=== PATIENT | male | born 1935 | race Caucasian/White ===

== ENCOUNTER 2017-01-14 09:54 | Day surgery (SDC) | payer MEDICARE, OTHER ==
[2017-01-14] MEDS ORDERED: LACTATED RINGERS 1,000 ML IV ONE (10:25)
[2017-01-14] MEDS ORDERED: MIDAZOLAM 2 MG/2 ML VIAL IVP ONE (12:45)
[2017-01-14] MEDS ORDERED: fentaNYL 100 MCG/2 ML VIAL IVP ONE (12:45)
[2017-01-14 13:49] VITALS: BP 124/74
== END 2017-01-14 09:55 | disposition home or self-care (01) ==
LOC: SDS 09:54
PROVIDERS: ATTEND Surgery
PROC: 0DBL8ZX Excision of Transverse Colon, Via Natural or Artificial Opening Endoscopic, Diagnostic (ICD-10-PCS; 2017-01-14)
PROC: 0DBN8ZX Excision of Sigmoid Colon, Via Natural or Artificial Opening Endoscopic, Diagnostic (ICD-10-PCS; principal; 2017-01-14 11:15)
DX: Z12.11 Encounter for screening for malignant neoplasm of colon (principal); Z80.0 Family history of malignant neoplasm of digestive organs; K57.30 Diverticulosis of large intestine without perforation or abscess without bleeding; K64.8 Other hemorrhoids; K59.8 Other specified functional intestinal disorders; Z86.010 Personal history of colon polyps; Z85.46 Personal history of malignant neoplasm of prostate; I10 Essential (primary) hypertension; Z90.79 Acquired absence of other genital organ(s); Z87.891 Personal history of nicotine dependence
CPT/HCPCS: 45380; J7120; 88305

== ENCOUNTER 2017-08-30 08:00 | Outpatient (CLI) | payer MEDICARE, OTHER ==
[2017-08-30 12:50] LABS: BASOPHILS # (AUTO) 0.1 10^3/uL (0.0-0.1); BASOPHILS % (AUTO) 1.2 %; EOSINOPHILS # (AUTO) 0.1 10^3/uL (0.0-0.7); EOSINOPHILS % (AUTO) 2.1 %; HGB - HEMOGLOBIN 13.9 g/dL (14.0-18.0); LYMPHOCYTES # (AUTO) 1.7 10^3/uL (1.5-3.5); LYMPHOCYTES % (AUTO) 25.9 %; MEAN CORPUSCULAR HEMOGLOBIN 28.3 pg (27.0-31.0); MEAN CORPUSCULAR HGB CONC 33.2 g/dL (32.0-36.0); MEAN CORPUSCULAR VOLUME 85.3 fL (80.0-94.0); MEAN PLATELET VOLUME 9.2 fL (7.4-11.4); MONOCYTES # (AUTO) 0.5 10^3/uL (0.0-1.0); MONOCYTES % (AUTO) 7.3 %; NEUTROPHILS # (AUTO) 4.1 10^3/uL (1.5-6.6); NEUTROPHILS % (AUTO) 63.5 %; PLT - PLATELET COUNT 186 10^3/uL (130-450); RED BLOOD COUNT 4.92 10^6/uL (4.70-6.10); RED CELL DISTRIBUTION WIDTH 14.5 % (12.0-15.0); WHITE BLOOD COUNT 6.5 x10^3/uL (4.8-10.8)
[2017-08-30 12:54] LABS: ALBUMIN 4.5 g/dL (3.2-5.5); ALBUMIN/GLOBULIN RATIO 1.6 (1.0-2.2); ALKALINE PHOSPHATASE 75 IU/L (42-121); ALT ALANINE AMINOTRANSFERASE 16 IU/L (10-60); AST ASPARTATE AMINOTRANSFERASE 17 IU/L (10-42); BILIRUBIN,TOTAL 0.9 mg/dL (0.2-1.0); BUN - BLOOD UREA NITROGEN 27 mg/dL (6-20); CARBON DIOXIDE - CO2 26 mmol/L (21-32); CHLORIDE 104 mmol/L (101-111); CHOL/HDL RATIO 2.2 (<5.0); CHOLESTEROL 175 mg/dL; CREATININE 1.1 mg/dL (0.6-1.2); GFR - MDRD 64 (>89); GLUCOSE 99 mg/dL (70-100); HDL CHOLESTEROL 81 mg/dL; SODIUM 137 mmol/L (135-145); TOTAL PROTEIN 7.4 g/dL (6.7-8.2)
[2017-08-30 13:14] LABS: LDL CHOLESTEROL,DIRECT 96 mg/dL; LDLD/HDL RATIO 1.2 (<3.6)
== END 2017-08-30 08:01 | disposition home or self-care (01) ==
LOC: LAB.WCP 08:00
PROVIDERS: ATTEND Family Medicine
DX: E78.5 Hyperlipidemia, unspecified (principal); I10 Essential (primary) hypertension; C61 Malignant neoplasm of prostate
CPT/HCPCS: 36415; 80053; 80061; 83721; 84153; 85025

== ENCOUNTER 2018-08-14 07:07 | Outpatient (CLI) | payer MEDICARE, OTHER ==
[2018-08-14 13:45] LABS: BASOPHILS # (AUTO) 0.1 10^3/uL (0.0-0.1); BASOPHILS % (AUTO) 1.1 %; EOSINOPHILS # (AUTO) 0.2 10^3/uL (0.0-0.7); EOSINOPHILS % (AUTO) 2.7 %; HGB - HEMOGLOBIN 13.1 g/dL (14.0-18.0); LYMPHOCYTES # (AUTO) 1.7 10^3/uL (1.5-3.5); LYMPHOCYTES % (AUTO) 30.3 %; MEAN CORPUSCULAR HEMOGLOBIN 28.8 pg (27.0-31.0); MEAN CORPUSCULAR HGB CONC 33.8 g/dL (32.0-36.0); MEAN CORPUSCULAR VOLUME 85.1 fL (80.0-94.0); MEAN PLATELET VOLUME 9.4 fL (7.4-11.4); MONOCYTES # (AUTO) 0.5 10^3/uL (0.0-1.0); NEUTROPHILS # (AUTO) 3.3 10^3/uL (1.5-6.6); NEUTROPHILS % (AUTO) 57.9 %; PLT - PLATELET COUNT 186 10^3/uL (130-450); RED BLOOD COUNT 4.54 10^6/uL (4.70-6.10); RED CELL DISTRIBUTION WIDTH 14.4 % (12.0-15.0); WHITE BLOOD COUNT 5.7 x10^3/uL (4.8-10.8)
[2018-08-14 14:05] LABS: ALBUMIN 4.2 g/dL (3.2-5.5); ALBUMIN/GLOBULIN RATIO 1.8 (1.0-2.2); ALKALINE PHOSPHATASE 69 IU/L (42-121); ALT ALANINE AMINOTRANSFERASE 17 IU/L (10-60); AST ASPARTATE AMINOTRANSFERASE 17 IU/L (10-42); BILIRUBIN,TOTAL 0.9 mg/dL (0.2-1.0); BUN - BLOOD UREA NITROGEN 18 mg/dL (6-20); CALCIUM 8.8 mg/dL (8.5-10.3); CARBON DIOXIDE - CO2 26 mmol/L (21-32); CHLORIDE 104 mmol/L (101-111); CHOL/HDL RATIO 2.6 (<5.0); CHOLESTEROL 169 mg/dL; GFR - MDRD 71 (>89); GLUCOSE 91 mg/dL (70-100); HDL CHOLESTEROL 66 mg/dL; LDL CHOLESTEROL,CALCULATED 95 mg/dL; LDL/HDL RATIO 1.4 (<3.6); SODIUM 138 mmol/L (135-145); TOTAL PROTEIN 6.5 g/dL (6.7-8.2); VLDL CHOLESTEROL 8 mg/dL
== END 2018-08-14 23:59 | disposition home or self-care (01) ==
LOC: LAB.WCP 07:07
PROVIDERS: ATTEND Family Medicine
DX: Z86.010 Personal history of colon polyps (principal); C61 Malignant neoplasm of prostate
CPT/HCPCS: 36415; 80053; 80061; 83721; 84153; 85025

== ENCOUNTER 2019-10-29 08:00 | Outpatient (CLI) | payer MEDICARE, OTHER ==
[2019-10-29 12:09] LABS: BASOPHILS # (AUTO) 0.1 10^3/uL (0.0-0.1); BASOPHILS % (AUTO) 1.2 %; EOSINOPHILS # (AUTO) 0.1 10^3/uL (0.0-0.7); EOSINOPHILS % (AUTO) 2.1 %; HGB - HEMOGLOBIN 13.3 g/dL (14.0-18.0); LYMPHOCYTES # (AUTO) 1.6 10^3/uL (1.5-3.5); LYMPHOCYTES % (AUTO) 37.8 %; MEAN CORPUSCULAR HEMOGLOBIN 29.4 pg (27.0-31.0); MEAN CORPUSCULAR HGB CONC 33.2 g/dL (32.0-36.0); MEAN CORPUSCULAR VOLUME 88.5 fL (80.0-94.0); MONOCYTES # (AUTO) 0.4 10^3/uL (0.0-1.0); MONOCYTES % (AUTO) 8.8 %; NEUTROPHILS # (AUTO) 2.1 10^3/uL (1.5-6.6); NEUTROPHILS % (AUTO) 49.9 %; PLT - PLATELET COUNT 150 10^3/uL (130-450); RED BLOOD COUNT 4.53 10^6/uL (4.70-6.10); RED CELL DISTRIBUTION WIDTH 13.2 % (12.0-15.0); WHITE BLOOD COUNT 4.2 x10^3/uL (4.8-10.8)
[2019-10-29 12:19] LABS: ALBUMIN 4.4 g/dL (3.2-5.5); ALBUMIN/GLOBULIN RATIO 1.6 (1.0-2.2); ALKALINE PHOSPHATASE 55 IU/L (42-121); ALT ALANINE AMINOTRANSFERASE 17 IU/L (10-60); AST ASPARTATE AMINOTRANSFERASE 18 IU/L (10-42); BILIRUBIN,TOTAL 1.1 mg/dL (0.2-1.0); BUN - BLOOD UREA NITROGEN 21 mg/dL (6-20); CALCIUM 8.9 mg/dL (8.5-10.3); CARBON DIOXIDE - CO2 26 mmol/L (21-32); CHLORIDE 105 mmol/L (101-111); CHOL/HDL RATIO 2.1 (<5.0); CHOLESTEROL 158 mg/dL; GFR - MDRD 71 (>89); GLUCOSE 100 mg/dL (70-100); HDL CHOLESTEROL 74 mg/dL; SODIUM 137 mmol/L (135-145); TOTAL PROTEIN 7.1 g/dL (6.7-8.2)
== END 2019-10-29 23:59 | disposition home or self-care (01) ==
LOC: LAB.WCP 08:00
PROVIDERS: ATTEND Family Medicine
DX: E78.5 Hyperlipidemia, unspecified (principal); I10 Essential (primary) hypertension; C61 Malignant neoplasm of prostate
CPT/HCPCS: 36415; 80053; 80061; 83721; 84153; 84443; 85025

== ENCOUNTER 2020-08-03 08:00 | Outpatient (CLI) | payer MEDICARE, OTHER ==
[2020-08-03 11:51] LABS: BASOPHILS % (AUTO) 0.3 %; HGB - HEMOGLOBIN 11.8 g/dL (14.0-18.0); LYMPHOCYTES # (AUTO) 1.2 10^3/uL (1.5-3.5); LYMPHOCYTES % (AUTO) 40.5 %; MEAN CORPUSCULAR HEMOGLOBIN 30.7 pg (27.0-31.0); MEAN CORPUSCULAR HGB CONC 32.6 g/dL (32.0-36.0); MEAN CORPUSCULAR VOLUME 94.3 fL (80.0-94.0); MEAN PLATELET VOLUME 12.5 fL (7.4-11.4); MONOCYTES # (AUTO) 0.3 10^3/uL (0.0-1.0); MONOCYTES % (AUTO) 9.5 %; NEUTROPHILS # (AUTO) 1.4 10^3/uL (1.5-6.6); PLT - PLATELET COUNT 61 10^3/uL (130-450); RED BLOOD COUNT 3.84 10^6/uL (4.70-6.10); RED CELL DISTRIBUTION WIDTH 14.3 % (12.0-15.0)
[2020-08-03 12:45] LABS: ALBUMIN 4.6 g/dL (3.2-5.5); ALBUMIN/GLOBULIN RATIO 1.7 (1.0-2.2); ALKALINE PHOSPHATASE 70 IU/L (42-121); ALT ALANINE AMINOTRANSFERASE 23 IU/L (10-60); AST ASPARTATE AMINOTRANSFERASE 19 IU/L (10-42); BILIRUBIN,TOTAL 1.2 mg/dL (0.2-1.0); BUN - BLOOD UREA NITROGEN 19 mg/dL (6-20); CALCIUM 9.3 mg/dL (8.5-10.3); CARBON DIOXIDE - CO2 26 mmol/L (21-32); CHLORIDE 102 mmol/L (101-111); CHOL/HDL RATIO 2.2 (<5.0); CHOLESTEROL 162 mg/dL; CREATININE 1.1 mg/dL (0.6-1.2); GLUCOSE 98 mg/dL (70-100); HDL CHOLESTEROL 73 mg/dL; LDL CHOLESTEROL,CALCULATED 81 mg/dL; LDL/HDL RATIO 1.1 (<3.6); SODIUM 136 mmol/L (135-145); TOTAL PROTEIN 7.3 g/dL (6.7-8.2); VLDL CHOLESTEROL 8 mg/dL
== END 2020-08-03 23:59 | disposition home or self-care (01) ==
LOC: LAB.WCP 08:00
PROVIDERS: ATTEND Internal Medicine
DX: I10 Essential (primary) hypertension (principal); E78.5 Hyperlipidemia, unspecified; Z85.46 Personal history of malignant neoplasm of prostate; Z13.29 Encounter for screening for other suspected endocrine disorder
CPT/HCPCS: 36415; 80053; 80061; 83721; 84153; 84443; 85025

== ENCOUNTER 2020-08-08 08:00 | Outpatient (CLI) | payer MEDICARE, OTHER ==
[2020-08-08 17:57] LABS: ABSOLUTE RETICS # AUTO 0.037 10^6/uL (0.020-0.110); BASOPHILS % (AUTO) 0.3 %; EOSINOPHILS % (AUTO) 1.3 %; HGB - HEMOGLOBIN 10.9 g/dL (14.0-18.0); LYMPHOCYTES # (AUTO) 1.1 10^3/uL (1.5-3.5); LYMPHOCYTES % (AUTO) 34.6 %; MEAN CORPUSCULAR HEMOGLOBIN 31.2 pg (27.0-31.0); MEAN CORPUSCULAR VOLUME 94.6 fL (80.0-94.0); MEAN PLATELET VOLUME 12.3 fL (7.4-11.4); MONOCYTES # (AUTO) 0.3 10^3/uL (0.0-1.0); MONOCYTES % (AUTO) 10.1 %; NEUTROPHILS # (AUTO) 1.7 10^3/uL (1.5-6.6); NEUTROPHILS % (AUTO) 53.4 %; PLT - PLATELET COUNT 61 10^3/uL (130-450); RED BLOOD COUNT 3.49 10^6/uL (4.70-6.10); RED CELL DISTRIBUTION WIDTH 14.4 % (12.0-15.0); WHITE BLOOD COUNT 3.2 x10^3/uL (4.8-10.8)
[2020-08-08 18:29] LABS: FERRITIN 208.8 ng/mL (23.9-336.2)
[2020-08-08 18:32] LABS: FOLATE 15.2 ng/mL (5.90 - >24.8)
[2020-08-08 18:36] LABS: % IRON SATURATION 28 % (20-50); IRON 93 ug/dL (45-182); TOTAL IRON BINDING CAPACITY 332 ug/dL (250-450); TRANSFERRIN 237 mg/dL (180-329)
== END 2020-08-08 23:59 | disposition home or self-care (01) ==
LOC: LAB.WCP 08:00
PROVIDERS: ATTEND Internal Medicine
DX: D61.818 Other pancytopenia (principal)
CPT/HCPCS: 36415; 81599; 82607; 82728; 82746; 83540; 84155; 84165; 84466; 85025; 85045; 86334

== ENCOUNTER 2020-08-23 08:00 | Outpatient (CLI) | payer MEDICARE, OTHER | END 2020-08-23 23:59 | disposition home or self-care (01) | LOC: LAB.R 08:00 | PROVIDERS: ATTEND Internal Medicine | DX: D47.2 Monoclonal gammopathy (principal) | CPT/HCPCS: 81599; 82570; 84156; 84166 ==

== ENCOUNTER 2022-09-08 14:01 | Emergency (ER) | payer MEDICARE, OTHER ==
[2022-09-08] MEDS ORDERED: LIDOCAINE 1% 2 ML VIAL SUBQ STA (14:17)
[2022-09-08] MEDS ORDERED: TETANUS/DIPHTHERIA/PERTUSSIS 0.5 ML SYRINGE IM ONE (14:18)
--- NOTE | 2022-09-08 15:07 | ED Physician Documentation ---
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 The patient was making a pumpkin pie and corn bread when he was checking the hand tetryl blender operator and accidentally turned it on causing the tetryl blender operator blade to strike his left index finger. He placed a towel dressing over it and drove here, concerned that because his platelets were low that he was bleeding quite a bit. No other injuries or concerns today. Review of Systems Constitutional: reports: Reviewed and negative Cardiac: reports: Reviewed and negative Respiratory: reports: Reviewed and negative GI: reports: Reviewed and negative Skin: reports: Laceration (s) Musculoskeletal: reports: Reviewed and negative Neurologic: reports: Reviewed and negative PD PAST MEDICAL HISTORY - Past Medical History Past Medical History: Yes Cardiovascular: Hypertension, High cholesterol Respiratory: None Endocrine/Autoimmune: None GI: Colon polyps : Other Musculoskeletal: None Derm: None - Present Medications Home Medications: Ambulatory Orders Medication Instructions Recorded Confirmed Ondansetron HCl 4 mg PO Q6HR PRN #30 tablet 01/02/22 08/31/22 Fluconazole [Diflucan] 400 mg PO DAILY #120 tablet 01/23/22 08/31/22 Acyclovir 400 mg PO BID 04/06/22 08/31/22 Aspirin EC [Ecotrin] 81 mg PO DAILY 04/06/22 08/31/22 Buspirone HCl 15 mg PO BID 04/06/22 08/31/22 Celecoxib [Celebrex] 200 mg PO DAILY 04/06/22 08/31/22 Cholecalciferol [Vitamin D3] 25 mcg PO DAILY 04/06/22 08/31/22 Ciprofloxacin HCl [Cipro] 500 mg PO BID #60 tablet 04/06/22 08/31/22 Clotrimazole/Betamethasone Crm 1 appful TOP BID 04/06/22 08/31/22 [Lotrisone Cream] Doxazosin [Cardura] 4 mg PO HS 04/06/22 08/31/22 Ferrous Sulfate 325 mg PO DAILY 04/06/22 08/31/22 Furosemide [Lasix] 40 mg PO DAILY 04/06/22 08/31/22 Lisinopril [Zestril] 20 mg PO DAILY 04/06/22 08/31/22 Magic Mouthwash 30 ml PO Q8H #120 ml 04/06/22 08/31/22 Magnesium Chloride [Magnesium] 64 mg PO DAILY 04/06/22 08/31/22 Metoprolol Succinate [Toprol Xl] 50 mg PO DAILY 04/06/22 08/31/22 Multivitamin W/Minerals [Theragran 1 each PO DAILY 04/06/22 08/31/22 M] Mupirocin 2% Oint [Bactroban 2% 1 appful TOP TID 04/06/22 08/31/22 Oint] Nystatin [Nystop] 1 applic TOP TID PRN 04/06/22 08/31/22 [place]-3 Fatty Acids/Dha/Epa [[place] 1 each PO DAILY 04/06/22 08/31/22 Blue Dha Cap] PARoxetine [Paxil] 40 mg PO DAILY 04/06/22 08/31/22 Pantoprazole [Protonix] 40 mg PO DAILY 04/06/22 08/31/22 Potassium Chloride [K-Dur] 20 meq PO DAILY 04/06/22 08/31/22 allopurinoL [Zyloprim] 100 mg PO DAILY 04/06/22 08/31/22 hydrOXYzine HCL [Hydroxyzine HCl] 10 - 20 mg PO TID PRN 04/06/22 08/31/22 hydroCHLOROthiazide [Hydrodiuril] 12.5 mg PO DAILY 04/06/22 08/31/22 cephALEXin [Keflex] 500 mg PO Q6H 5 Days #20 cap 09/08/22 - Allergies Allergies/Adverse Reactions: Allergies Allergy/AdvReac Type Severity Reaction Status Date / Time No Known Drug Allergies Allergy Verified 09/08/22 14:12 - Social History Does the pt smoke?: No Smoking Status: Never smoker PD ED PE NORMAL - Vitals Vital signs reviewed: Yes - General General: Alert and oriented X 3, No acute distress, Well developed/nourished - HEENT HEENT: Atraumatic - Cardiac Cardiac: RRR, No murmur - Respiratory Respiratory: No respiratory distress, Clear bilaterally - Derm Derm: Other (laceration, partial avulsion of the tip of the left index finger including nail. ) - Extremities Extremities: No deformity, No tenderness to palpate, Normal ROM s pain, No edema, Other (Injury to left index finger tip but moves finger w/o difficulty) - Neuro Neuro: Alert and oriented X 3 Eye Opening: Spontaneous Motor: Obeys Commands Verbal: Oriented GCS Score: 15 Results - Vitals Vitals: Vital Signs - 24 hr 09/08/22 14:09 Temperature 36.9 C Heart Rate 85 Respiratory 20 Rate Blood Pressure 157/77 H O2 Saturation 100 Oxygen O2 Source Room air - Rads (name of study) finger Radiology: EMP read indepedently Procedures - Laceration (location) Finger left Distal Length in cm: 2 Wound type: Contaminated, Other (multiple small jagged lacerations from tetryl blender operator, w/ nail and nailbed involvement) Neurovascular status: Sensory intact, Motor intact, Vascular intact Tendon involvement: Tendon intact Anesthesia: Lidocaine 1% Wound preparation: Chlorhexadine, Irrigated copiously NS Deep layer closure: # sutures - enter number Skin layer closure: Interrupted, Sutures - enter # (11), Other (vicryl used) Other: Patient tolerated well, No complications, Neurovascular intact, Dressing applied PD Medical Decision Making - ED course Complexity details: reviewed results, re-evaluated patient, considered differential, d/w patient ED course: This is a very nice 87-year-old gentleman who presented after injuring his left index finger in a tetryl blender operator as described in HPI. The patient had a intermediate complex laceration of the fingertip involving the fingernail and bed. There was areas that were avulsed in the very distal part of the fingertip and it wrapped around to the finger pad. Total approximately 2 cm to the multiple jagged pieces involving the nail. It required utilizing a finger tourniquet and anesthetizing with 1% plain lidocaine and then closing the nailbed as best as I was able to along with the laceration and pulling the distal finger flap over to the nailbed to provide closure. Patient tolerated well Departure - Departure Disposition: 01 Home, Self Care Clinical Impression: Laceration, Open fracture of phalanx of digit of hand Condition: Good Instructions: ED Fx Finger Open, ED Laceration Hand Prescriptions: cephALEXin [Keflex] 500 mg PO Q6H 5 Days #20 cap Comments: You sustained a laceration of the index finger and nail, which also caused a fracture (break) to the bone of the distal fingertip. The nail was destroyed but I sutured some of it in place to protect the underlying skin as it heals. These are dissolvable's sutures and do not need to be removed. Please keep the hand clean but do not soak and generally try to keep dry and do not wash aggressively. If at any point time there appears to be signs of infection such as redness, swelling, purulent or honey crusted drainage, increased pain or other new concerns, please see your doctor or return to the ER. The finger will have scarring and take some time to heal as it was not able to be closed Tightly due to the nature of the wound. You will need to be on antibiotics for 5 days to reduce chance of infection.
[2022-09-08 15:26] VITALS: BP 134/84
--- NOTE | 2022-09-08 15:35 | XRAY Report ---
PROCEDURE: Finger(s) LT INDICATIONS: trauma to index finger TECHNIQUE: AP hand, 2 views of the second finger(s) acquired. COMPARISON: None FINDINGS: Bones: There is a mildly displaced fracture seen involving the distal aspect of the distal phalanx of the second finger. No additional fractures can be seen. Age-appropriate degenerative changes are seen. Soft tissues: Associated soft tissue injury is seen. IMPRESSION: Fracture of the distal aspect of the distal phalanx of the second finger. Reviewed by: Westley Olivrea MD on 09/08/2022 2:34 PM [place] Approved by: Westley Olivera MD on 09/08/2022 2:34 PM [facility] Station ID: [id number]
== END 2022-09-08 15:34 | disposition home or self-care (01) ==
LOC: ED 14:01
DX: I10 Essential (primary) hypertension (principal); S62.631B Displaced fracture of distal phalanx of left index finger, initial encounter for open fracture; W29.0XXA Contact with powered kitchen appliance, initial encounter; Z23 Encounter for immunization; Z71.85 Encounter for immunization safety counseling
CPT/HCPCS: 13131; 90471

== ENCOUNTER 2022-12-31 07:41 | Outpatient (CLI) | payer MEDICARE, OTHER ==
[2022-12-31 08:14] LABS: INR 1.3 (0.8-1.2); PT - PROTHROMBIN TIME 14.2 secs (9.9-12.6)
[2022-12-31 08:21] LABS: PARTIAL THROMBOPLASTIN TIME 31.4 secs (24.9-33.3)
[2022-12-31] MEDS ORDERED: LIDOCAINE-MPF 1% 5 ML VIAL ONE (08:23)
[2022-12-31 11:51] VITALS: BP 136/72
--- NOTE | 2022-12-31 17:36 | CT Report ---
PROCEDURE: BONE MARROW BX W/ASPIRATION Sedation analgesia for 0 minutes (no sedation). INDICATIONS: AML TECHNIQUE: The indications, alternatives, benefits, risks, and possible complications of the procedure were comm unicated to the patient. Informed written consent from the patient was obtained and placed in the art. Continuous EKG and hemodynamic monitoring was started by trained personnel. For radiation dose reduction, the following was used: automated exposure control, adjustment of mA and/or kV according to patient size. The patient was brought to the CT suite and fork repairer spiral CT imaging was performed with localization g rid. The appropriate site for percutaneous access to the biopsy target was marked, was prepped and d raped sterilely, and was infused with local anaesthesia. Under CT guidance, a core biopsy trocar and needle set was advanced to the biopsy target, and specimen(s) were obtained. The trocar and needle were then removed, and the patient was sent for post-procedure monitoring. COMPARISON: None. FINDINGS: Biopsy site: Right iliac crest. Needle: 11 gauge biopsy needle with introducer trocar. Number of passes: 2 Medications: 1% lidocaine for local anaesthesia.. Complications: None. IMPRESSION: Successful CT-guided biopsy of bone marrow biopsy. Reviewed by: Macarena Johnson MD on 12/31/2022 5:35 PM PDT Approved by: Macarena Johnson MD on 12/31/2022 5:35 PM PDT Station ID: [id number]
== END 2022-12-31 07:42 | disposition home or self-care (01) ==
LOC: DI 07:41
PROVIDERS: ATTEND Internal Medicine Hematology & Oncology
DX: C92.00 Acute myeloblastic leukemia, not having achieved remission (principal); D46.9 Myelodysplastic syndrome, unspecified
CPT/HCPCS: 36415; 38222; 85610; 85730

== ENCOUNTER 2023-02-27 09:11 | Outpatient (CLI) | payer MEDICARE, OTHER ==
[2023-02-21 09:23] VITALS: BP 128/84
[~2023-02-27 09:11] MED LIST: LIDOCAINE-MPF 1% 5 ML VIAL ONE
[2023-02-27] MEDS ORDERED: LIDOCAINE-MPF 1% 5 ML VIAL ONE ×2 (09:30→10:30)
--- NOTE | 2023-02-27 16:50 | CT Report ---
PROCEDURE: BONE MARROW BX INDICATIONS: AML TECHNIQUE: The indications, alternatives, benefits, risks, and possible complications of the procedure were comm unicated to the patient. Informed written consent from the patient was obtained and placed in the art. Continuous EKG and hemodynamic monitoring was started by trained personnel. For radiation dose reduction, the following was used: automated exposure control, adjustment of mA and/or kV according to patient size. The patient was brought to the CT suite and insurance examining clerk spiral CT imaging was performed with localization g rid. The appropriate site for percutaneous access to the biopsy target was marked, was prepped and d raped sterilely, and was infused with local anaesthesia. Under CT guidance, a core biopsy trocar and needle set was advanced to the biopsy target, and specimen(s) were obtained. Bone marrow aspirate w as attempted. However, no aspirate was returned. The trocar and needle were then removed, and the pat ient was sent for post-procedure monitoring. COMPARISON: None. FINDINGS: Biopsy site: Right iliac Needle: 11 gauge biopsy needle with introducer trocar. Number of passes: 1 Medications: 1% lidocaine for local anaesthesia. Complications: None. IMPRESSION: Successful CT-guided biopsy of bone marrow. It is noted that no bone mineral aspirate wa s able to be obtained.. Reviewed by: Padmini Chan MD on 02/27/2023 4:49 PM PDT Approved by: Padmini Chan MD on 02/27/2023 4:49 PM PDT Station ID: [id number]
== END 2023-02-27 09:12 | disposition home or self-care (01) ==
LOC: SDS 09:11
PROVIDERS: ATTEND Internal Medicine Hematology & Oncology
DX: C92.00 Acute myeloblastic leukemia, not having achieved remission (principal); C61 Malignant neoplasm of prostate
CPT/HCPCS: 38221; 77012; J7120

== ENCOUNTER 2023-02-27 09:12 | Outpatient (CLI) | payer MEDICARE, OTHER ==
[2023-02-27] MEDS ORDERED: LACTATED RINGERS 1,000 ML IV ONE (10:00)
[2023-02-27] MEDS ORDERED: LACTATED RINGERS 500 ML IV ONE (10:00)
[2023-02-27 11:57] VITALS: BP 128/72
== END 2023-02-27 09:13 | disposition home or self-care (01) ==
LOC: SDS 09:12 → DI 09:12 → SDS 09:13 → DI 09:13
PROVIDERS: ATTEND Radiology Neuroradiology
DX: Z53.9 Procedure and treatment not carried out, unspecified reason (principal)
CPT/HCPCS: 38221

== ENCOUNTER 2023-04-03 11:14 | Emergency (ER) | payer MEDICARE, OTHER ==
[2023-04-03 11:33] VITALS: O2SAT 100
[2023-04-03] MEDS ORDERED: SODIUM CHLORIDE 0.9% 1,000 ML IV STA ×2 (11:42)
[2023-04-03 11:58] LABS: BASOPHILS % (AUTO) 1.5 %; HCT - HEMATOCRIT 21.3 % (42.0-52.0); HGB - HEMOGLOBIN 7.1 g/dL (14.0-18.0); LYMPHOCYTES % (AUTO) 26.5 %; MEAN CORPUSCULAR HEMOGLOBIN 30.5 pg (27.0-31.0); MEAN CORPUSCULAR HGB CONC 33.3 g/dL (32.0-36.0); MEAN CORPUSCULAR VOLUME 91.4 fL (80.0-94.0); MEAN PLATELET VOLUME 10.4 fL (7.4-11.4); MONOCYTES % (AUTO) 32.4 %; NEUTROPHILS % (AUTO) 36.7 %; RED BLOOD COUNT 2.33 10^6/uL (4.70-6.10); RED CELL DISTRIBUTION WIDTH 13.5 % (12.0-15.0)
[2023-04-03 12:02] LABS: PLT - PLATELET COUNT 13 10^3/uL (130-450); SLIDE REVIEW? Indicated; WHITE BLOOD COUNT 0.7 x10^3/uL (4.8-10.8)
[2023-04-03 12:03] LABS: ABNORMAL LYMPHS % (MANUAL) 0 %; BAND NEUTROPHILS % (MANUAL) 0 %
[2023-04-03 12:11] LABS: ALBUMIN 3.9 g/dL (3.2-5.5); ALBUMIN/GLOBULIN RATIO 1.6 (1.0-2.2); BILIRUBIN,TOTAL 0.4 mg/dL (0.2-1.0); CALCIUM 9.3 mg/dL (8.5-10.3); POTASSIUM 4.2 mmol/L (3.5-4.5); TOTAL PROTEIN 6.4 g/dL (6.4-8.9)
--- NOTE | 2023-04-03 12:15 | ED Physician Documentation ---
History of Present Illness - Stated complaint Stated Complaint: WEAK,LOSS OF BALANCE - Chief complaint Chief Complaint: Neuro - History obtained from History obtained from: Patient - History of Present Illness Timing: Yesterday Pain level max: 0 Pain level now: 0 - Additonal information Additional information: Patient is an 88-year-old male who presents to the emergency department stating that he had generalized weakness yesterday. He states that this lasted for a few minutes. He has a history of MDS with secondary AML. Has severe neutropenia, severe anemia and severe thrombocytopenia. He states that these feelings are similar to when he has needed platelets and red blood cells in the past. He is currently on venetoclax and azacitidine. He has not noted any bleeding. Denies any trauma. No focal weakness or numbness. He states that he was at the grocery store yesterday and after walking in the grocery store became lightheaded and felt generally weak in his legs and arms. Sat down and the feeling passed in a few minutes. He states he had a second time at home when his vision felt like it was "dim". No chest pain. No shortness of breath. No nausea or vomiting. No focal neurological deficits. No headache. No trauma. Currently asymptomatic. He states he spoke with [place] [facility] who referred him here for evaluation. Review of Systems Constitutional: denies: Fever, Chills Nose: denies: Rhinorrhea / runny nose, Congestion GI: denies: Vomiting, Diarrhea Skin: denies: Rash Musculoskeletal: denies: Neck pain, Back pain Neurologic: denies: Headache PD PAST MEDICAL HISTORY - Past Medical History Past Medical History: Yes Cardiovascular: Congestive heart failure, Hypertension, High cholesterol Respiratory: None Endocrine/Autoimmune: None GI: GERD : Benign prostate hypertrophy, Other HEENT: Chronic vision loss Psych: Depression, Anxiety Musculoskeletal: None Derm: None - Past Surgical History General: Colonoscopy HEENT: Cataracts - Present Medications Home Medications: Ambulatory Orders Medication Instructions Recorded Confirmed Ondansetron HCl 4 mg PO Q6HR PRN #30 tablet 01/02/22 03/22/23 Fluconazole [Diflucan] 400 mg PO DAILY #120 tablet 01/23/22 03/22/23 Acyclovir 400 mg PO BID 04/06/22 03/22/23 Aspirin EC [Ecotrin] 81 mg PO DAILY 04/06/22 03/22/23 Buspirone HCl 15 mg PO BID 04/06/22 03/22/23 Celecoxib [Celebrex] 200 mg PO DAILY 04/06/22 03/22/23 Cholecalciferol [Vitamin D3] 25 mcg PO DAILY 04/06/22 03/22/23 Ciprofloxacin HCl [Cipro] 500 mg PO BID #60 tablet 04/06/22 03/22/23 Clotrimazole/Betamethasone Crm 1 appful TOP BID 04/06/22 03/22/23 [Lotrisone Cream] Doxazosin [Cardura] 4 mg PO HS 04/06/22 03/22/23 Ferrous Sulfate 325 mg PO DAILY 04/06/22 03/22/23 Furosemide [Lasix] 40 mg PO DAILY 04/06/22 03/22/23 Lisinopril [Zestril] 20 mg PO DAILY 04/06/22 03/22/23 Magnesium Chloride [Magnesium] 64 mg PO DAILY 04/06/22 03/22/23 Metoprolol Succinate [Toprol Xl] 50 mg PO DAILY 04/06/22 03/22/23 Multivitamin W/Minerals [Theragran 1 each PO DAILY 04/06/22 03/22/23 M] [place]-3 Fatty Acids/Dha/Epa [[place] 1 each PO DAILY 04/06/22 03/22/23 Blue Dha Cap] PARoxetine [Paxil] 40 mg PO DAILY 04/06/22 03/22/23 Pantoprazole [Protonix] 40 mg PO DAILY 04/06/22 03/22/23 Potassium Chloride [K-Dur] 20 meq PO DAILY 04/06/22 03/22/23 allopurinoL [Zyloprim] 100 mg PO DAILY 04/06/22 03/22/23 hydrOXYzine HCL [Hydroxyzine HCl] 10 - 20 mg PO TID PRN 04/06/22 03/22/23 Venetoclax [Venclexta] 200 mg PO DAILY 12/28/22 03/22/23 Fluconazole 400 mg PO DAILY #120 tablet 04/01/23 Fluconazole [Diflucan] 400 mg PO DAILY #120 tablet 04/01/23 - Allergies Allergies/Adverse Reactions: Allergies Allergy/AdvReac Type Severity Reaction Status Date / Time No Known Drug Allergies Allergy Verified 02/27/23 06:35 - Social History Does the pt smoke?: No Smoking Status: Never smoker PD ED PE NORMAL - Vitals Vital signs reviewed: Yes - General General: Alert and oriented X 3, No acute distress - HEENT HEENT: Atraumatic, PERRL, EOMI, Moist mucous membranes - Neck Neck: Supple, no meningeal sign - Cardiac Cardiac: RRR, Strong equal pulses - Respiratory Respiratory: No respiratory distress, Clear bilaterally - Abdomen Abdomen: Soft, Non tender, Non distended - Back Back: No spinal TTP - Derm Derm: Warm and dry, No rash - Extremities Extremities: No edema, No calf tenderness / cord - Neuro Neuro: Alert and oriented X 3, senior infrastructure engineer 2-12 intact, No motor deficit, No sensory deficit, Normal speech Eye Opening: Spontaneous Motor: Obeys Commands Verbal: Oriented GCS Score: 15 - Psych Psych: Normal mood, Normal affect Results - Vitals Vitals: Vital Signs - 24 hr 04/03/23 04/03/23 04/03/23 11:26 12:08 12:34 Temperature 35.6 C L Heart Rate 83 78 78 Respiratory 20 14 18 Rate Blood Pressure 147/94 H 124/75 125/72 O2 Saturation 100 100 100 Oxygen O2 Source Room air - EKG (time done) 1155 EKG releavant findings:: EKG personally interpreted by author of this note. Relevant findings are: Rate: Rate (enter#) (77) Rhythm: NSR [place]: Anterior hemiblock (LAFB) Intervals: RBBB - Labs Labs: Laboratory Tests 04/03/23 04/03/23 11:52 11:52 WBC 0.7 L* RBC 2.33 L Hgb 7.1 L Hct 21.3 L MCV 91.4 MCH 30.5 MCHC 33.3 RDW 13.5 Plt Count 13 L* MPV 10.4 Neut # (Auto) Not Reportable Lymph # (Auto) Not Reportable Divide # (Auto) Not Reportable Eos # (Auto) Not Reportable Baso # (Auto) Not Reportable Absolute Nucleated RBC Not Reportable Total Counted 25 Band Neuts % (Manual) 0 Abnorm Lymph % (Manual) 0 Nucleated RBC % Not Reportable Neutrophils # (Manual) 0.3 L* Lymphocytes # (Manual) 0.2 L Monocytes # (Manual) 0.2 Eosinophils # (Manual) 0.0 Basophils # (Manual) 0.0 Differential Comment MANUAL DIFFERENTIAL Manual Slide Review Indicated WBC Morphology NORMAL APPEARANCE Platelet Estimate DECREASED (<130,000) Platelet Morphology NORMAL APPEARANCE RBC Morph Micro Appear NORMAL APPEARANCE Sodium 137 Potassium 4.2 Chloride 107 Carbon Dioxide 25 Anion Gap 5.0 L BUN 25 H Creatinine 1.0 Estimated GFR (MDRD) 70 L Glucose 107 H Calcium 9.3 Total Bilirubin 0.4 AST 8 L ALT 10 Alkaline Phosphatase 84 Total Protein 6.4 Albumin 3.9 Globulin 2.5 Albumin/Globulin Ratio 1.6 Lipase 14 PD Medical Decision Making - ED course Complexity details: reviewed results, re-evaluated patient, considered differential, d/w patient, d/w solar sales consultant ED course: 88-year-old man with chronic anemia, chronic thrombocytopenia. Patient not having any evidence of bleeding. Labs are not significantly different from prior. No indication for emergent head CT. No focal neurological deficits. Feels better after IV fluids. Discussed the case with his oncologist and he will follow-up as an outpatient. Patient is asymptomatic today. Ambulating with a steady gait. No lightheadedness or dizziness. No generalized weakness or focal weakness today. No indication for emergent blood transfusion of red cells or platelets. Patient counseled regarding signs and symptoms for which I believe and urgent re-evaluation would be necessary. Patient with good understanding of and agreement to plan and is comfortable going home at this time This document was made in part using voice recognition software. While efforts are made to proofread this document, sound alike and grammatical errors may occur. Departure - Departure Disposition: 01 Home, Self Care Clinical Impression: Weakness, Thrombocytopenia Anemia Qualifiers: Anemia type: unspecified type Qualified Code(s): D64.9 - Anemia, unspecified AML (acute myeloblastic leukemia) Qualifiers: Leukemia Active/Remission status: without remission Qualified Code(s): C92.00 - Acute myeloblastic leukemia, not having achieved remission Condition: Good Instructions: ED Weakness [facility] Follow-Up: Geraldo King MD [Primary Care Provider] - Chito Abel MD [Physician No Access] - Chito Abel MD [Provider Admit Priv/Credential] - Comments: Please follow-up with your oncologist for further care. Your hemoglobin was 7.1 today and your platelets were 13,000. I did discuss the case with your oncologist, they will follow-up with you in the [facility] clinic. Your testing does not reveal any acute abnormalities today. Forms: PCP List
[2023-04-03 12:26] LABS: LYMPHOCYTES # (MANUAL) 0.2 10^3/uL (1.5-3.5); LYMPHOCYTES % (MANUAL) 28 %; MONOCYTES # (MANUAL) 0.2 10^3/uL (0.0-1.0); NEUTROPHILS # (MANUAL) 0.3 10^3/uL (1.5-6.6)
[2023-04-03 12:27] LABS: PLATELET ESTIMATE, MANUAL DECREASED (<130,000) (NORMAL); PLATELET MORPHOLOGY NORMAL APPEARANCE (NORMAL); RBC MORPHOLOGY (MULTIPLE) NORMAL APPEARANCE (NORMAL)
[2023-04-03 12:28] LABS: DIFFERENTIAL COMMENT MANUAL DIFFERENTIAL; WBC MORPHOLOGY (MULTIPLE) NORMAL APPEARANCE (NORMAL)
[2023-04-03 13:12] VITALS: BP 126/73
== END 2023-04-03 13:40 | disposition home or self-care (01) ==
LOC: ED 11:14
DX: D69.6 Thrombocytopenia, unspecified (principal); C92.00 Acute myeloblastic leukemia, not having achieved remission
CPT/HCPCS: 36415; 80053; 83690; 85025; 86850; 86900; 86901; 93005; 99284

== ENCOUNTER 2023-04-19 16:21 | Emergency (ER) | payer MEDICARE, OTHER ==
[2023-04-19] MEDS ORDERED: TRANEXAMIC ACID 1,000 MG/10 ML VIAL NAS STA (16:24)
[2023-04-19 16:55] LABS: HCT - HEMATOCRIT 21.7 % (42.0-52.0); HGB - HEMOGLOBIN 7.1 g/dL (14.0-18.0); LYMPHOCYTES % (AUTO) 36.6 %; MEAN CORPUSCULAR HEMOGLOBIN 29.1 pg (27.0-31.0); MEAN CORPUSCULAR HGB CONC 32.7 g/dL (32.0-36.0); MEAN CORPUSCULAR VOLUME 88.9 fL (80.0-94.0); MEAN PLATELET VOLUME 10.1 fL (7.4-11.4); MONOCYTES % (AUTO) 46.3 %; NEUTROPHILS % (AUTO) 17.1 %; PLT - PLATELET COUNT 38 10^3/uL (130-450); RED BLOOD COUNT 2.44 10^6/uL (4.70-6.10); RED CELL DISTRIBUTION WIDTH 13.6 % (12.0-15.0)
--- NOTE | 2023-04-19 16:58 | ED Physician Documentation ---
History of Present Illness - Stated complaint Stated Complaint: BLEEDING - Chief complaint Chief Complaint: General - History obtained from History obtained from: Patient - Additonal information Additional information: The patient is transferred to the emergency department from the [facility] for ongoing gingival bleeding in the setting of severe thrombocytopenia. 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 He was just seen by Dr. Tomas brewster this morning and found to have a platelet count of 3. His low levels are usually in the single digits and have ranged previously from 5-9. Posttransfusion, he usually reaches a level of teens to low 20s. The patient states that he began to have gingival bleeding after his visit with Dr. Elias this morning. He states that usually, he is able to hold some pressure with gauze and the bleeding stops. However, the bleeding continued and oozing fashion throughout the day and was still going on when he arrived for his appointment at the [facility] for his platelet transfusion. The patient received his entire unit of platelets and the oozing did continue though the patient thinks that has slowed down a little. He denies any chest pain or shortness of breath. No lightheadedness or syncopal episodes. The [facility] contacted Dr. Elias, who stated he would like the patient to get a couple more units of platelets with a goal of platelet count around 50, given his active bleeding. He states the patient's normal goal would be above 10, but since there is ongoing active bleeding, the goal becomes 50. Platelets have been ordered, according to [facility] and will be here in a few hours. The patient denies bleeding from anywhere else. He states he otherwise feels fairly well. No other complaints at this time. PD PAST MEDICAL HISTORY - Past Medical History Past Medical History: Yes Cardiovascular: Congestive heart failure, Hypertension, High cholesterol Respiratory: None Endocrine/Autoimmune: None GI: GERD : Benign prostate hypertrophy, Other HEENT: Chronic vision loss Psych: Depression, Anxiety Musculoskeletal: None Derm: None - Past Surgical History General: Colonoscopy HEENT: Cataracts - Present Medications Home Medications: Ambulatory Orders Medication Instructions Recorded Confirmed Ondansetron HCl 4 mg PO Q6HR PRN #30 tablet 01/02/22 04/19/23 Fluconazole [Diflucan] 400 mg PO DAILY #120 tablet 01/23/22 04/19/23 Acyclovir 400 mg PO BID 04/06/22 04/19/23 Aspirin EC [Ecotrin] 81 mg PO DAILY 04/06/22 04/19/23 Buspirone HCl 15 mg PO BID 04/06/22 04/19/23 Celecoxib [Celebrex] 200 mg PO DAILY 04/06/22 04/19/23 Cholecalciferol [Vitamin D3] 25 mcg PO DAILY 04/06/22 04/19/23 Ciprofloxacin HCl [Cipro] 500 mg PO BID #60 tablet 04/06/22 04/19/23 Clotrimazole/Betamethasone Crm 1 appful TOP BID 04/06/22 04/19/23 [Lotrisone Cream] Doxazosin [Cardura] 4 mg PO HS 04/06/22 04/19/23 Ferrous Sulfate 325 mg PO DAILY 04/06/22 04/19/23 Furosemide [Lasix] 40 mg PO DAILY 04/06/22 04/19/23 Lisinopril [Zestril] 20 mg PO DAILY 04/06/22 04/19/23 Magnesium Chloride [Magnesium] 64 mg PO DAILY 04/06/22 04/19/23 Metoprolol Succinate [Toprol Xl] 50 mg PO DAILY 04/06/22 04/19/23 Multivitamin W/Minerals [Theragran 1 each PO DAILY 04/06/22 04/19/23 M] [place]-3 Fatty Acids/Dha/Epa [[place] 1 each PO DAILY 04/06/22 04/19/23 Blue Dha Cap] PARoxetine [Paxil] 40 mg PO DAILY 04/06/22 04/19/23 Pantoprazole [Protonix] 40 mg PO DAILY 04/06/22 04/19/23 Potassium Chloride [K-Dur] 20 meq PO DAILY 04/06/22 04/19/23 allopurinoL [Zyloprim] 100 mg PO DAILY 04/06/22 04/19/23 hydrOXYzine HCL [Hydroxyzine HCl] 10 - 20 mg PO TID PRN 04/06/22 04/19/23 Venetoclax [Venclexta] 200 mg PO DAILY 12/28/22 04/19/23 Fluconazole 400 mg PO DAILY #120 tablet 04/01/23 Fluconazole [Diflucan] 400 mg PO DAILY #120 tablet 04/01/23 - Allergies Allergies/Adverse Reactions: Allergies Allergy/AdvReac Type Severity Reaction Status Date / Time No Known Drug Allergies Allergy Verified 04/19/23 16:37 - Social History Does the pt smoke?: No Smoking Status: Never smoker PD ED PE NORMAL - Vitals Vital signs reviewed: Yes - General General: Alert and oriented X 3, No acute distress, Well developed/nourished, Other (The patient is sitting up in bed, alert, well-appearing.) - HEENT HEENT: Atraumatic, PERRL, EOMI, Moist mucous membranes, Other (Mild clotted bloody residue along the margin of the Right mandibular gingiva and left maxillary gingiva. Mild slow oozing of blood noted in the same areas. No other active bleeding from mouth. No oral trauma.) - Neck Neck: Supple, no meningeal sign - Cardiac Cardiac: RRR, No murmur - Respiratory Respiratory: No respiratory distress, Clear bilaterally - Derm Derm: Normal color, Warm and dry, No rash, Other (No bruising or bleeding from skin) - Extremities Extremities: No deformity - Neuro Neuro: Alert and oriented X 3 - Psych Psych: Normal mood, Normal affect Results - Vitals Vitals: Vital Signs - 24 hr 04/19/23 16:33 Temperature 36.4 C L Heart Rate 89 Respiratory 20 Rate Blood Pressure 130/72 O2 Saturation 99 Oxygen O2 Source Room air PD Medical Decision Making - ED course Complexity details: reviewed results, re-evaluated patient, considered differential, d/w patient ED course: I reviewed the patient's labs from this morning showing the platelet count of 3, as well as hemoglobin level of 7.7. Dr. Elias had discussed the patient's case with me personally by phone and I did also review his note from his visit with the patient this morning. Dr. Elias had requested that the patient get the other 2 units of platelets with a goal of platelet count of 50, due to the fact that he has active bleeding. The patient was stable in the ED, but did have some ongoing oozing from his gingiva. I did place TXA impregnated gauze around the oozing areas. I discussed the case with Dr. Ashby, who agreed to admit the patient to her service for observation, remainder of platelet transfusion, and trending platelet levels. Patient is agreeable to this plan as well. Departure - Departure Disposition: ED Place in Observation Clinical Impression: Severe thrombocytopenia, Gingival bleeding Condition: Serious Forms: PCP List
[2023-04-19 17:01] LABS: WHITE BLOOD COUNT 0.4 x10^3/uL (4.8-10.8)
[2023-04-19 17:02] LABS: ABNORMAL LYMPHS % (MANUAL) 0 %; BAND NEUTROPHILS % (MANUAL) 0 %
[2023-04-19 17:06] LABS: ALBUMIN 3.8 g/dL (3.2-5.5); ALBUMIN/GLOBULIN RATIO 1.5 (1.0-2.2); BILIRUBIN,TOTAL 0.4 mg/dL (0.2-1.0); CALCIUM 9.1 mg/dL (8.5-10.3); CREATININE 0.7 mg/dL (0.6-1.3); POTASSIUM 4.1 mmol/L (3.5-4.5); TOTAL PROTEIN 6.4 g/dL (6.4-8.9)
[2023-04-19 17:07] LABS: INR 1.3 (0.8-1.2)
[2023-04-19 17:14] LABS: LYMPHOCYTES # (MANUAL) 0.2 10^3/uL (1.5-3.5); LYMPHOCYTES % (MANUAL) 40 %; MONOCYTES # (MANUAL) 0.2 10^3/uL (0.0-1.0)
[2023-04-19 17:15] LABS: PLATELET ESTIMATE, MANUAL DECREASED (<130,000) (NORMAL); PLATELET MORPHOLOGY NORMAL APPEARANCE (NORMAL); RBC MORPHOLOGY (MULTIPLE) NORMAL APPEARANCE (NORMAL)
[2023-04-19 17:17] LABS: DIFFERENTIAL COMMENT MANUAL DIFFERENTIAL
[2023-04-19 18:36] VITALS: O2SAT 100
--- NOTE | 2023-04-19 22:12 | ED Physician Documentation ---
ED Addendum - Addendum Addendum: 04/19/23 22:[address] Reed at shift change. Briefly we're trying to get his platelet count above 50,000 because of recent active bleeding. At this time his second unit (the first was given in the MAC unit) has just completed and I ordered a platelet count. If above 50,000 can be discharged. If below 50,000 there is a second unit waiting for him in the blood bank. Discharged in stable condition
[2023-04-19 22:23] VITALS: BP 130/72
== END 2023-04-19 22:54 | disposition home or self-care (01) ==
LOC: ED 16:21
DX: D69.6 Thrombocytopenia, unspecified (principal); K06.8 Other specified disorders of gingiva and edentulous alveolar ridge; C92.00 Acute myeloblastic leukemia, not having achieved remission; D61.818 Other pancytopenia; I11.0 Hypertensive heart disease with heart failure; I50.9 Heart failure, unspecified; E78.00 Pure hypercholesterolemia, unspecified; Z79.899 Other long term (current) drug therapy; Z79.82 Long term (current) use of aspirin
CPT/HCPCS: 36415; 36430; 80053; 83690; 85025; 85049; 85610; 86850; 86900; 86901; 99284; 99285; P9037